=== PATIENT | male | born 1995 | race Caucasian/White ===

== ENCOUNTER 2025-05-22 21:04 | Emergency (ER) | payer OTHER, SELFPAY ==
[2025-05-22 21:11] VITALS: BP 139/66; PULSE 103; RESP 20; TEMP 36.7; O2SAT 98; BMI 25.1
--- NOTE | 2025-05-22 21:14 | ED.ANXIETY ---
HPI - Anxiety General Chief Complaint: Anxiety Stated Complaint: Back and shoulder pain; anxiety, vision spots Time Seen by Provider: 05/22/25 21:13 Source: patient Mode of arrival: Ambulatory History of Present Illness HPI narrative: 30-year-old male patient with a history of anxiety disorder who was detained by the police today which made his anxiety increased. He would like something for anxiety. He uses marijuana. Related Data Allergies Allergy/AdvReac Type Severity Reaction Status Date / Time No Known Drug Allergies Allergy Verified 05/22/25 21:13 Review of Systems Review of Systems ROS Unobtainable: All systems reviewed & are unremarkable except as noted in HPI and below Psychiatric Psychiatric: Reports as per HPI Patient History Social History Smoking Status: Current every day smoker Smoking Status: Current every day smoker Exam Narrative Exam Narrative: General: Alert and conversant. No distress. Mild anxiety. Appears well nourished and well hydrated Craniofacial: No evidence of trauma. Nontender and no swelling. Eyes: PERRLA EOMI conjunctiva clear Lungs: Clear to auscultation with good air movement. No wheezing, rales or rhonchi. No respiratory distress Cardiac: Regular rate and rhythm with no appreciable murmur or gallop Neuro: Alert and oriented. Cranial nerves, motor, sensory and cerebellar all grossly intact. No focal deficit Skin: Warm and normal color. No rashes Psychological: Normal affect and interaction. No evidence of delusion or psychosis. Normal mood. Initial Vital Signs Initial Vital Signs: Vital Signs Temperature 98.0 F 05/22/25 21:11 Pulse Rate 103 H 05/22/25 21:11 Respiratory Rate 20 05/22/25 21:11 Blood Pressure 139/66 05/22/25 21:11 Pulse Oximetry 98 05/22/25 21:11 Oxygen Delivery Method Room Air 05/22/25 21:11 Course Orders Ordered: Discontinued Medications Hydroxyzine HCl (Hydroxyzine Hcl 25 Mg Tablet) 50 mg PO NOW ONE Stop: 05/22/25 21:14 Last Admin: 05/22/25 21:18 Dose: 50 mg Documented By: JEREMÍAS Vital Signs Vital signs: Vital Signs - 8 hr 05/22/25 21:11 Temperature 98.0 F Pulse Rate 103 H Respiratory Rate 20 Blood Pressure 139/66 Pulse Oximetry 98 Oxygen Delivery Method Room Air MDM - Anxiety MDM Narrative Medical decision making narrative: Patient with mild exacerbation of anxiety and agreed with hydroxyzine orally here in the ER to help him get through the night. He will follow up with his doctor. Return to the ER course. Discharge Plan Departure Patient Disposition: Home Clinical Impression: Acute anxiety Instructions: Anxiety and Panic Attacks (Alternative Therapy) Activity Restrictions/Additional Instructions: Plan: Hydration, rest and relaxation with deep breathing and other anxiety relieving techniques. Follow up with your doctor for anxiety management. Return to the ER if worse Stand Alone Forms: Patient Portal/API
== END 2025-05-22 21:22 | disposition home or self-care (01) ==
PROVIDERS: Emergency Provider Emergency Medicine
DX: F41.9 Anxiety disorder, unspecified (principal); H53.8 Other visual disturbances; F12.90 Cannabis use, unspecified, uncomplicated; M25.519 Pain in unspecified shoulder
CPT/HCPCS: 99283; A9270